=== PATIENT | female | born 2000 | race Caucasian/White ===

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

== ENCOUNTER 2022-09-12 04:26 | Emergency (ER) | payer MEDICAID ==
[~2022-09-12] VITALS: Ht 170.2 cm; Wt 72.7 kg
[2022-09-12 05:53] LABS: BASOPHILS % (AUTO) 0.5 % (0-1); EOSINOPHILS # (AUTO) 0.2 X10'3 (0-0.9); EOSINOPHILS % (AUTO) 2.3 % (0-6); HEMATOCRIT 40.6 % (35.0-45.0); HEMOGLOBIN 13.5 g/dl (12.0-16.0); LYMPHOCYTES # (AUTO) 2.5 X10'3 (1.1-4.8); LYMPHOCYTES % (AUTO) 34.2 % (21-51); MEAN CORPUSCULAR HEMOGLOBIN 29.6 PG (27.0-31.0); MEAN CORPUSCULAR HGB CONC 33.2 g/dL (33.0-36.5); MEAN CORPUSCULAR VOLUME 89.3 FL (78-98); MEAN PLATELET VOLUME 9.2 FL (7.4-10.4); MONOCYTES # (AUTO) 0.5 X10'3 (0-0.9); MONOCYTES % (AUTO) 7.4 % (2-12); NEUTROPHILS % (AUTO) 55.6 % (42-75); PLATELET COUNT 242 X10'3 (140-440); RED BLOOD COUNT 4.55 X10'6 (4.20-5.60); RED CELL DISTRIBUTION WIDTH 12.7 % (11.5-14.5); WHITE BLOOD COUNT 7.2 X10'3 (4.5-11.0)
[2022-09-12 06:00] LABS: ALANINE AMINOTRANSFERASE 52 U/L (12-78); ALBUMIN 4.3 G/DL (3.4-5.0); ALBUMIN/GLOBULIN RATIO 1.2 (1.1-1.5); ALKALINE PHOSPHATASE 69 IU/L (20-180); ANION GAP 8 (8-16); ASPARTATE AMINO TRANSFERASE 20 U/L (10-37); BILIRUBIN,TOTAL 0.7 MG/DL (0.1-1.0); BLOOD UREA NITROGEN 7 MG/DL (7-18); CALCIUM 8.9 MG/DL (8.5-10.1); CHLORIDE 103 MMOL/L (99-107); CREATININE 0.78 MG/DL (0.40-0.90); GLUCOSE 95 MG/DL (70-104); LIPASE 63 U/L (73-393); POTASSIUM 3.7 MMOL/L (3.5-5.1); SODIUM 138 MMOL/L (135-145); TOTAL CARBON DIOXIDE 26.9 MMOL/L (24-32); eGFR > 90 ML/MIN
[2022-09-12 07:20] LABS: URINE HCG NEGATIVE (NEG)
[2022-09-12 07:34] LABS: CLARITY,URINE SLIGHTLY CLOUDY (Clear); COLOR,URINE YELLOW (Yellow); GLUCOSE, URINE NEGATIVE (Neg); KETONES,URINE NEGATIVE (Neg); LEUKOCYTE ESTERASE ,URINE SMALL (Neg); NITRITES, URINE NEGATIVE (Neg); OCCULT BLOOD,URINE NEGATIVE (Neg); PROTEIN,URINE NEGATIVE (Neg); UROBILINOGEN,URINE 0.2 E.U/dL (0.2-1.0)
[2022-09-12 07:39] LABS: UA COLLECTION TYPE CLN CATCH MIDSTREAM
[2022-09-12] MEDS ORDERED: iohexol 350MG/ML 100ml bottle IV ONE (07:41)
[2022-09-12 07:44] LABS: BACTERIA,URINE FEW /HPF (Neg); MUCUS STRANDS NONE SEEN /LPF (Neg); SQUAMOUS EPITHELIAL CELL,UR MANY /LPF (FEW)
[2022-09-12 07:50] LABS: RBC,URINE 0-2 /HPF (0-2); TRANSITIONAL EPI CELLS,URINE FEW /HPF
[2022-09-12 12:10] VITALS: BP 116/77
== END 2022-09-12 12:40 | disposition home or self-care (01) ==
LOC: ER 04:27
DX: R10.11 Right upper quadrant pain (principal); R11.0 Nausea
CPT/HCPCS: 36415; 74178; 76700; 80053; 81001; 81025; 83690; 85025; 99285; J3490; Q9967

== ENCOUNTER 2023-01-30 06:04 | Inpatient (IN) | payer MEDICAID ==
[~2023-01-30] VITALS: Ht 167.6 cm; Wt 68.0 kg
[2023-01-30 07:25] LABS: EOSINOPHILS # (AUTO) 0.1 X10'3 (0-0.9); EOSINOPHILS % (AUTO) 1.4 % (0-6); MONOCYTES # (AUTO) 0.6 X10'3 (0-0.9)
[2023-01-30 07:27] LABS: BASOPHILS % (AUTO) 0.3 % (0-1); HEMATOCRIT 38.1 % (35.0-45.0); HEMOGLOBIN 13.2 g/dl (12.0-16.0); LYMPHOCYTES # (AUTO) 1.9 X10'3 (1.1-4.8); LYMPHOCYTES % (AUTO) 18.9 % (21-51); MEAN CORPUSCULAR HEMOGLOBIN 30.9 PG (27.0-31.0); MEAN CORPUSCULAR HGB CONC 34.6 g/dL (33.0-36.5); MEAN CORPUSCULAR VOLUME 89.3 FL (78-98); MEAN PLATELET VOLUME 10.3 FL (7.4-10.4); MONOCYTES % (AUTO) 6.5 % (2-12); NEUTROPHILS # (AUTO) 7.3 X10'3 (1.8-7.7); NEUTROPHILS % (AUTO) 72.9 % (42-75); PLATELET COUNT 161 X10'3 (140-440); RED BLOOD COUNT 4.27 X10'6 (4.20-5.60); RED CELL DISTRIBUTION WIDTH 12.8 % (11.5-14.5)
[2023-01-30 07:37] LABS: ALANINE AMINOTRANSFERASE 220 U/L (12-78); ALBUMIN 3.9 G/DL (3.4-5.0); ALKALINE PHOSPHATASE 95 IU/L (46-116); ANION GAP 11 (8-16); ASPARTATE AMINO TRANSFERASE 186 U/L (10-37); BILIRUBIN,TOTAL 4.2 MG/DL (0.1-1.0); BLOOD UREA NITROGEN 4 MG/DL (7-18); BUN/CREATININE RATIO 5.2 (10.0-20.0); CALCIUM 9.1 MG/DL (8.5-10.1); CHLORIDE 100 MMOL/L (99-107); CREATININE 0.77 MG/DL (0.40-0.90); GLUCOSE 94 MG/DL (70-104); LIPASE 50 U/L (73-393); SODIUM 137 MMOL/L (135-145); TOTAL CARBON DIOXIDE 25.9 MMOL/L (24-32); eGFR > 90 ML/MIN
[2023-01-30 08:08] LABS: ALBUMIN/GLOBULIN RATIO 1.1 (1.1-1.5); TOTAL PROTEIN 7.4 G/DL (6.4-8.2)
--- NOTE | 2023-01-30 08:30 | NUR ---
ULTRASOUND AT BEDSIDE
[2023-01-30 08:47] LABS: URINE HCG NEGATIVE (NEG)
[2023-01-30 08:57] LABS: CLARITY,URINE SLIGHTLY CLOUDY (Clear); COLOR,URINE YELLOW (Yellow); GLUCOSE, URINE NEGATIVE (Neg); KETONES,URINE NEGATIVE (Neg); LEUKOCYTE ESTERASE ,URINE MODERATE (Neg); NITRITES, URINE NEGATIVE (Neg); OCCULT BLOOD,URINE TRACE-INTACT (Neg); PH,URINE 6.5 (4.8-8.0); PROTEIN,URINE NEGATIVE (Neg); UROBILINOGEN,URINE 0.2 E.U/dL (0.2-1.0)
[2023-01-30 09:02] LABS: UA COLLECTION TYPE CLN CATCH MIDSTREAM
[2023-01-30 09:04] LABS: BACTERIA,URINE 2+ /HPF (Neg); MUCUS STRANDS FEW /LPF (Neg); RBC,URINE NONE SEEN /HPF (0-2); SQUAMOUS EPITHELIAL CELL,UR MODERATE /LPF (FEW)
[2023-01-30] MEDS ORDERED: piperacillin/tazo 3.375gm/50ml 50 ML IV ONE (09:45)
[2023-01-30] MEDS ORDERED: normal saline 1000ML IV soln IV ONE (09:45)
[2023-01-30] MEDS ORDERED: NORG1TAB78 PO (10:32)
[2023-01-30] MEDS ORDERED: BUSP15TA3 PO (10:32)
[2023-01-30] MEDS ORDERED: magnesium 4gm in 100ml NS 100 ML IV PRN (10:50)
[2023-01-30] MEDS ORDERED: magnesium hydroxide 30ml (MOM) UD suspension PO PRN (10:50)
[2023-01-30] MEDS ORDERED: potassium Cl 40MEQ/1/2NS 520ml 520 ML IV PRN (10:50)
[2023-01-30] MEDS ORDERED: mag hydrox/Alum hydrox/simeth 30ml oral suspension PO PRN (10:50)
[2023-01-30] MEDS ORDERED: ondansetron/PF 4mg/2ml inj IV PRN (10:50)
[2023-01-30] MEDS ORDERED: potassium Cl 20 mEq SR tablet PO PRN ×2 (10:50)
[2023-01-30] MEDS ORDERED: magnesium Cl slow-release 64mg tablet PO PRN (10:50)
[2023-01-30] MEDS ORDERED: magnesium 2GM in 50ml NS 50 ML IV PRN (10:50)
[2023-01-30] MEDS ORDERED: morphine 2 MG/ML inj. syringe IV PRN (10:50)
[2023-01-30] MEDS ORDERED: meperidine/PF 50mg/ml syringe IV ONE (10:55)
[2023-01-30] MEDS: normal saline 1000ml 1,000 ML IV SCH ×2 (14:21→20:50)
[2023-01-30] MEDS: morphine 2 MG/ML inj. syringe IV PRN ×2 (15:54→21:14)
--- NOTE | 2023-01-30 16:05 | NUR ---
called to give report but the pt has not been assigned a nurse yet, will call back
--- NOTE | 2023-01-30 16:30 | NUR ---
Patient in room ED 14. I have received report from Kings MAURICE and had the opportunity to ask questions and assume patient care. Nurse aware room is not ready and no bed currently. Housekeeping in room cleaning.
[2023-01-30] MEDS: piperacillin/tazo 4.5gm/100ml 100 ML IV SCH (16:48)
--- NOTE | 2023-01-30 17:07 | NUR ---
Patient on the unit
--- NOTE | 2023-01-30 18:08 | NUR ---
Problems reprioritized. Patient report given, questions answered & plan of care reviewed with Leonor MAURICE.
[2023-01-30] MEDS: K and/or MAG REPLACEMENT MC SCH (20:00)
[2023-01-30] MEDS: docusate sod 100mg capsule PO SCH (20:00)
[2023-01-30 23:02] VITALS: BP 110/60
[2023-01-31] MEDS: piperacillin/tazo 4.5gm/100ml 100 ML IV SCH ×3 (01:12→16:31)
[2023-01-31] MEDS: morphine 2 MG/ML inj. syringe IV PRN (05:22)
[2023-01-31 06:00] VITALS: BP 106/64
--- NOTE | 2023-01-31 06:23 | NUR ---
Gave report to Dominique BECKHAM.
[2023-01-31] MEDS: normal saline 1000ml 1,000 ML IV SCH ×2 (06:50→14:38)
[2023-01-31] MEDS: docusate sod 100mg capsule PO SCH ×2 (07:29→20:46)
[2023-01-31] MEDS: K and/or MAG REPLACEMENT MC SCH ×2 (08:00→20:00)
[2023-01-31 08:59] LABS: BASOPHILS % (AUTO) 0.4 % (0-1); EOSINOPHILS # (AUTO) 0.1 X10'3 (0-0.9); EOSINOPHILS % (AUTO) 1.6 % (0-6); HEMATOCRIT 33.4 % (35.0-45.0); HEMOGLOBIN 11.2 g/dl (12.0-16.0); LYMPHOCYTES # (AUTO) 1.8 X10'3 (1.1-4.8); LYMPHOCYTES % (AUTO) 30.3 % (21-51); MEAN CORPUSCULAR HEMOGLOBIN 30.4 PG (27.0-31.0); MEAN CORPUSCULAR HGB CONC 33.6 g/dL (33.0-36.5); MEAN CORPUSCULAR VOLUME 90.4 FL (78-98); MEAN PLATELET VOLUME 9.2 FL (7.4-10.4); MONOCYTES # (AUTO) 0.4 X10'3 (0-0.9); NEUTROPHILS # (AUTO) 3.7 X10'3 (1.8-7.7); NEUTROPHILS % (AUTO) 61.7 % (42-75); PLATELET COUNT 169 X10'3 (140-440); RED BLOOD COUNT 3.69 X10'6 (4.20-5.60); RED CELL DISTRIBUTION WIDTH 12.5 % (11.5-14.5)
[2023-01-31 09:36] LABS: ALANINE AMINOTRANSFERASE 154 U/L (12-78); ALBUMIN 3.3 G/DL (3.4-5.0); ALBUMIN/GLOBULIN RATIO 1.1 (1.1-1.5); ALKALINE PHOSPHATASE 84 IU/L (46-116); ANION GAP 13 (8-16); ASPARTATE AMINO TRANSFERASE 68 U/L (10-37); BILIRUBIN,TOTAL 2.4 MG/DL (0.1-1.0); BLOOD UREA NITROGEN 8 MG/DL (7-18); BUN/CREATININE RATIO 10.8 (10.0-20.0); CALCIUM 8.1 MG/DL (8.5-10.1); CHLORIDE 107 MMOL/L (99-107); CREATININE 0.74 MG/DL (0.40-0.90); GLUCOSE 65 MG/DL (70-104); MAGNESIUM 1.6 MG/DL (1.5-2.4); POTASSIUM 3.6 MMOL/L (3.5-5.1); SODIUM 141 MMOL/L (135-145); TOTAL PROTEIN 6.3 G/DL (6.4-8.2); eGFR > 90 ML/MIN
[2023-01-31 10:00] VITALS: BP 103/61
[2023-01-31] MEDS ORDERED: glucagon, human recombinant 1mg kit ONE (11:53)
[2023-01-31] MEDS ORDERED: fentaNYL/PF 50MCG/1 ML 2ML syringe ONE (11:53)
[2023-01-31] MEDS ORDERED: iohexol 300mg/ml 100ml inj. ONE (11:54)
[2023-01-31] MEDS ORDERED: diphenhydrAMINE 50 mg/ml inj ONE (11:54)
[2023-01-31] MEDS ORDERED: MIDAZolam 1 MG/ML 5ML VIAL ONE (11:54)
[2023-01-31] MEDS ORDERED: LIDOcaine Viscous 15ml cup ONE (11:54)
[2023-01-31] MEDS: acetaminophen 325mg tablet PO PRN ×2 (14:38→20:46)
[2023-01-31 15:00] VITALS: BP 102/64
--- NOTE | 2023-01-31 18:13 | NUR ---
Problems reprioritized. Patient report given, questions answered & plan of care reviewed with KAYLENE Galvez.
--- NOTE | 2023-01-31 18:23 | NUR ---
MUNICIPAL MAINTENANCE WORKER documentation: I have reviewed and agree with all interventions, assessments performed and documented by Dominique Tucker LVN .
--- NOTE | 2023-01-31 18:49 | NUR ---
PAGER ID: [phone] MESSAGE: Vesna MURRELL [id number] PT'S HAD A CRITICAL BG ALL DAY. CURRENTLY 69. D5? HYPOGLYCEMIC PROTOCOL? THANKS. CORA [id number]
--- NOTE | 2023-01-31 18:49 | NUR ---
PT. GIVEN JELLO AND JUICES. NPO SIGN ON HER DOOR- CL DIET ORDERED PER REPORT. SHE WAS NOT GIVEN DINNER.
--- NOTE | 2023-01-31 19:19 | NUR ---
BG RECHECKED - 90. pT. STATES SHE IS NOT "WHOOZY" ANYMORE.
[2023-01-31] MEDS: dextrose 5%-water 1,000 ML IV SCH (19:20)
[2023-01-31 19:33] VITALS: BP 106/63
[2023-01-31] MEDS: busPIRone 15mg tablet PO SCH (20:46)
[2023-01-31 22:00] VITALS: BP 103/58
[2023-02-01] VITALS (8 sets, daily range): BP systolic 118–139; BP diastolic 67–86
[2023-02-01] MEDS: morphine 2 MG/ML inj. syringe IV PRN ×3 (00:06→16:46)
[2023-02-01] MEDS: piperacillin/tazo 4.5gm/100ml 100 ML IV SCH ×2 (00:07→07:25)
[2023-02-01] MEDS: normal saline 1000ml 1,000 ML IV SCH ×2 (02:50→13:07)
[2023-02-01] MEDS: dextrose 5%-water 1,000 ML IV SCH (04:26)
--- NOTE | 2023-02-01 06:30 | NUR ---
Gave report to Jennifer MAURICE.
--- NOTE | 2023-02-01 06:35 | NUR ---
Patient in room ORTHO 4010. I have received report from CORA MAURICE and had the opportunity to ask questions and assume patient care.
[2023-02-01 07:00] LABS: BASOPHILS % (AUTO) 0.5 % (0-1); EOSINOPHILS # (AUTO) 0.2 X10'3 (0-0.9); EOSINOPHILS % (AUTO) 3.3 % (0-6); HEMATOCRIT 36.4 % (35.0-45.0); HEMOGLOBIN 12.2 g/dl (12.0-16.0); LYMPHOCYTES # (AUTO) 1.8 X10'3 (1.1-4.8); LYMPHOCYTES % (AUTO) 31.8 % (21-51); MEAN CORPUSCULAR HEMOGLOBIN 30.1 PG (27.0-31.0); MEAN CORPUSCULAR HGB CONC 33.4 g/dL (33.0-36.5); MEAN CORPUSCULAR VOLUME 90.2 FL (78-98); MEAN PLATELET VOLUME 9.1 FL (7.4-10.4); MONOCYTES # (AUTO) 0.4 X10'3 (0-0.9); MONOCYTES % (AUTO) 6.8 % (2-12); NEUTROPHILS # (AUTO) 3.2 X10'3 (1.8-7.7); NEUTROPHILS % (AUTO) 57.6 % (42-75); PLATELET COUNT 211 X10'3 (140-440); RED BLOOD COUNT 4.04 X10'6 (4.20-5.60); RED CELL DISTRIBUTION WIDTH 12.6 % (11.5-14.5); WHITE BLOOD COUNT 5.6 X10'3 (4.5-11.0)
[2023-02-01 07:21] LABS: ALANINE AMINOTRANSFERASE 123 U/L (12-78); ALBUMIN 3.3 G/DL (3.4-5.0); ALKALINE PHOSPHATASE 82 IU/L (46-116); ANION GAP 12 (8-16); ASPARTATE AMINO TRANSFERASE 42 U/L (10-37); BILIRUBIN,TOTAL 1.8 MG/DL (0.1-1.0); BLOOD UREA NITROGEN 3 MG/DL (7-18); BUN/CREATININE RATIO 4.2 (10.0-20.0); CALCIUM 8.3 MG/DL (8.5-10.1); CHLORIDE 104 MMOL/L (99-107); CREATININE 0.72 MG/DL (0.40-0.90); GLUCOSE 108 MG/DL (70-104); MAGNESIUM 1.9 MG/DL (1.5-2.4); SODIUM 137 MMOL/L (135-145); TOTAL CARBON DIOXIDE 21.5 MMOL/L (24-32); TOTAL PROTEIN 6.6 G/DL (6.4-8.2); eGFR > 90 ML/MIN
[2023-02-01] MEDS: docusate sod 100mg capsule PO SCH (07:26)
[2023-02-01] MEDS: busPIRone 15mg tablet PO SCH (07:26)
[2023-02-01] MEDS: K and/or MAG REPLACEMENT MC SCH (08:00)
[2023-02-01] MEDS ORDERED: hydrALAZINE 20mg/ml inj. IV PRN (09:00)
[2023-02-01] MEDS ORDERED: ringers solution, lacted 1,000 ML IV SCH (09:00)
[2023-02-01] MEDS ORDERED: fentaNYL/PF 50MCG/1 ML 2ML syringe IV PRN ×2 (09:00)
[2023-02-01] MEDS ORDERED: ondansetron/PF 4mg/2ml inj IV PRN (09:00)
[2023-02-01] MEDS ORDERED: morphine 2 MG/ML inj. syringe IV PRN (09:00)
[2023-02-01] MEDS ORDERED: morphine 4 MG/ML inj SYRINge IV PRN (09:00)
[2023-02-01] MEDS ORDERED: labetalol 20mg/4ml (5mg/ml) syringe IV PRN (09:00)
[2023-02-01] MEDS ORDERED: fentaNYL/PF 50MCG/1 ML 2ML syringe ONE (10:12)
[2023-02-01] MEDS ORDERED: midazolam 1 mg/ML 2ml injection ONE (10:13)
[2023-02-01] MEDS ORDERED: rocuronium 10mg/ml inj IV ONE (10:13)
[2023-02-01] MEDS ORDERED: glycopyrrolate 0.2mg/ml inj ONE (10:14)
[2023-02-01] MEDS ORDERED: dexamethasone sod phosphate 10mg/ml inj ONE (10:14)
[2023-02-01] MEDS ORDERED: sevoflurane 250ml liquid IH ONE (10:14)
[2023-02-01] MEDS ORDERED: LIDOcaine 1%/PF 5ML 10 MG/ML VIAL ONE (10:14)
[2023-02-01] MEDS ORDERED: ondansetron/PF 4mg/2ml inj ONE (10:14)
[2023-02-01] MEDS ORDERED: neostigmine methylsulfate 1 MG/ML 10ml vial ONE (10:14)
[2023-02-01] MEDS ORDERED: propofol inj 20 ML IV ONE (10:14)
[2023-02-01] MEDS ORDERED: BUPIVAcaine/PF 2.5 mg/ml (0.25%) 30ml vial IJ ONE (11:15)
--- NOTE | 2023-02-01 11:29 | NUR ---
Received from OR via HOSPITAL BED, accompanied by Anesthesiologist DR SALMERON and report given by Anesthesiologist. PT IS GROGGY BUT RESPONDS EASILY TO VERBAL STIMULI AND FOLLOWS COMMANDS. PT PLACED ON BEDSIDE MONITOR, VSS.PT IS IN SR WITH RATE IN 80'S. PT IS RECEIVING 8L O2 TO MASK AND TOLERATING WELL WITH O2 SAT >95%. WILL TITRATE DOWN PT TOLERATES. PT HAS 22G PIV TO RT HAND WITH LR INFUSING ORDERED. PT HAS LAP SITE TX3 TO UPPER RT ABD THAT ARE CDI, DERMABOND IS CDI. PT DENIES PAIN AT THIS TIME. WILL CONTINUE TO ASSESS
--- NOTE | 2023-02-01 12:36 | NUR ---
PATIENT HAS MET ALL CRITERIA FOR TRANSFER TO THE ORTHO FLOOR. VSS. DRESSINGS INTACT. BED LOW, CALL LIGHT PRESENT AND 2 RAILS UP. EMA RN PRESENT TO ACCEPT CARE OF PATIENT AND REPORT HAS BEEN CALLED. ALL QUESTIONS ANSWERED TO ACCEPTING RN.
[2023-02-01] MEDS ORDERED: HYDROcodone/acetaminophen 10/325mg tab PO PRN (14:15)
[2023-02-01 14:40] LABS: HBSAG SCREEN Negative (Negative); HEP B CORE AB, TOT Negative (Negative)
--- NOTE | 2023-02-01 15:31 | NUR ---
PATIENT ABLE TO VOID POST OP vs STABLE. Able to tolerate clear liquid diet. seen by Dr king is for discharge. Awaiting DC orders.
[2023-02-01] MEDS ORDERED: HYDR-3972 PO (15:35)
[2023-02-01] MEDS ORDERED: ONDA4TAB12 PO (15:35)
--- NOTE | 2023-02-01 17:10 | NUR ---
Dc orders received and explained to patient and mother. . Patient DC home via private car with family memer in stable condition
== END 2023-02-01 17:00 | disposition home or self-care (01) | DRG 263 ==
LOC: ER 06:05 → ED HOLD 10:51 → ORTHO 4S 17:00
PROVIDERS: ADMIT Family Medicine; ATTEND Family Medicine
PROC: 0FT44ZZ Resection of Gallbladder, Percutaneous Endoscopic Approach (ICD-10-PCS; principal; 2023-02-01 10:14)
DX: K80.01 Calculus of gallbladder with acute cholecystitis with obstruction (principal); K82.1 Hydrops of gallbladder; F32.A Depression, unspecified; R74.01 Elevation of levels of liver transaminase levels; E16.2 Hypoglycemia, unspecified; E80.6 Other disorders of bilirubin metabolism; N39.0 Urinary tract infection, site not specified; K82.8 Other specified diseases of gallbladder; Z91.048 Other nonmedicinal substance allergy status; Z79.899 Other long term (current) drug therapy
CPT/HCPCS: 36415; 76700; 80053; 81001; 81025; 82948; 83605; 83690; 83735; 84145; 85025; 86704; 86705; 86706; 87040; 87088; 87340; 96360; 99285; G0378; J1100; J1200; J1610; J2250; J2270; J2405; J2543; J2704; J2710; J3010; J3490; J7030; J7070; Q9967